=== PATIENT | male | born 1955 ===

== ENCOUNTER 2021-07-09 12:18 | Outpatient (CLI) | payer OTHER | END 2021-07-09 12:32 | disposition home or self-care (01) | LOC: RAD 12:18 | PROVIDERS: ATTEND Internal Medicine Cardiovascular Disease | DX: R07.89 Other chest pain (principal); J44.0 Chronic obstructive pulmonary disease with (acute) lower respiratory infection; G44.89 Other headache syndrome ==

== ENCOUNTER → 2021-07-11 10:21 | Outpatient (CLI) | payer OTHER | END | disposition home or self-care (01) | LOC: RAD 10:21 | PROVIDERS: ATTEND Internal Medicine Cardiovascular Disease | DX: R07.89 Other chest pain (principal) ==

== ENCOUNTER 2021-07-17 10:25 | Outpatient (CLI) | payer OTHER | END 2021-07-17 10:46 | disposition home or self-care (01) | LOC: RAD 10:25 | PROVIDERS: ATTEND Internal Medicine Cardiovascular Disease | DX: R07.89 Other chest pain (principal) ==

== ENCOUNTER 2021-08-01 09:33 | Outpatient (CLI) | payer OTHER | END 2021-08-01 09:41 | disposition home or self-care (01) | LOC: TOM 09:33 | PROVIDERS: ATTEND Internal Medicine Cardiovascular Disease | DX: R07.89 Other chest pain (principal); J44.9 Chronic obstructive pulmonary disease, unspecified ==